=== PATIENT | male | born 1975 | race Hispanic/Latino ===

== ENCOUNTER 2023-10-28 08:02 | Outpatient (CLI) | payer OTHER | END 2023-10-28 08:03 | disposition home or self-care (01) | LOC: BICMRI 08:02 | PROVIDERS: ATTEND Family Medicine | DX: S80.02XD Contusion of left knee, subsequent encounter (principal); M22.42 Chondromalacia patellae, left knee; M89.9 Disorder of bone, unspecified ==

== ENCOUNTER 2023-12-17 09:43 | Outpatient (CLI) | payer OTHER ==
[2023-12-17 11:10] LABS: #Basophils Less than 0.03 10x3/uL (0.0-0.2); %Basophils 0.2 % (0.0-1.0); %Eosinophils 3.6 % (0.0-10.0); %Lymphocytes 29.9 % (21.0-51.0); %Monocytes 6.5 % (0.0-10.0); %Neutrophils 58.5 % (42.0-75.0); Hematocrit 42.1 % (42.0-52.0); Hemoglobin 14.3 g/dL (14.0-18.0); Mean Corpuscular Volume 82.5 fL (78.0-98.0); Mean Platelet Volume 8.8 fL (7.4-10.4); Platelet Count 185 10x3/uL (130-400); RBC Distribution Width 13.2 % (11.5-14.5)
[2023-12-17 12:50] LABS: Chloride 105 mmol/L (98-107); Potassium 3.6 mmol/L (3.5-5.1); Sodium 141 mmol/L (136-145)
[2023-12-17 12:51] LABS: Calcium 8.8 mg/dL (7.8-10.44)
[2023-12-17 12:52] LABS: Glucose 112 mg/dL (70-105)
[2023-12-17 12:53] LABS: Anion Gap 14 mmol/L (10-20); Carbon Dioxide 26 mmol/L (22-29)
[2023-12-17 12:55] LABS: Calc. Creatinine Clearance 0 mL/min (70-130); Estimated GFR 98
[2023-12-17 12:56] LABS: BUN (Urea Nitrogen) 22 mg/dL (8.9-20.6)
== END 2023-12-17 09:44 | disposition home or self-care (01) ==
LOC: LABBT 09:43
PROVIDERS: ATTEND Orthopaedic Surgery
DX: Z01.818 Encounter for other preprocedural examination (principal); M22.42 Chondromalacia patellae, left knee
CPT/HCPCS: 80048; 85025; 93005; 93010

== ENCOUNTER 2023-12-20 09:04 | Day surgery (SDC) | payer OTHER ==
[2023-12-17 10:50] VITALS: BMI 39.5
[2023-12-20] MEDS ORDERED: PROPOFOL 20 ML ONE ×3 (11:47→13:22)
[2023-12-20] MEDS ORDERED: Lidocaine 2% PF 5 ML VIAL ONE (11:47)
[2023-12-20] MEDS ORDERED: Bupivacaine PF 0.5% 30 ML VIAL ONE (11:47)
[2023-12-20] MEDS ORDERED: Lidocaine 1% PF 5 ML VIAL ONE (11:55)
[2023-12-20] MEDS ORDERED: fentaNYL 50 mcg/mL 1 mL Vial ONE (11:55)
[2023-12-20] MEDS ORDERED: Bupivacaine HCl 0.5%/Epinephrine 1:200,000/PF 30 ml Vial ONE (12:20)
[2023-12-20] MEDS ORDERED: CEFAZOLIN 2 GM VIAL ONE (12:59)
[2023-12-20] MEDS ORDERED: Sodium Chloride 0.9% 100 ML ONE (12:59)
[2023-12-20] MEDS ORDERED: Dexamethasone 20 MG/5 ML VIAL ONE (13:25)
[2023-12-20] MEDS ORDERED: Ondansetron PF 4 MG/2 ML Vial ONE (13:25)
[2023-12-20] MEDS ORDERED: Morphine 2 MG/ML VIAL ONE ×2 (15:15→15:44)
[2023-12-20] MEDS ORDERED: HYDROcodone/Acetaminophen 5/325 mg Tablet ONE (15:16)
== END 2023-12-20 17:13 | disposition home or self-care (01) ==
LOC: SDC 09:04
PROVIDERS: ATTEND Orthopaedic Surgery
PROC: 0SBD4ZZ Excision of Left Knee Joint, Percutaneous Endoscopic Approach (ICD-10-PCS; principal; 2023-12-20)
PROC: 0SCD4ZZ Extirpation of Matter from Left Knee Joint, Percutaneous Endoscopic Approach (ICD-10-PCS; principal; 2023-12-20)
PROC: 3E0T3BZ Introduction of Anesthetic Agent into Peripheral Nerves and Plexi, Percutaneous Approach (ICD-10-PCS; principal; 2023-12-20)
DX: M22.42 Chondromalacia patellae, left knee (principal); M24.08 Loose body, other site; I10 Essential (primary) hypertension; R73.9 Hyperglycemia, unspecified; E87.5 Hyperkalemia; Z79.899 Other long term (current) drug therapy; Z98.890 Other specified postprocedural states
CPT/HCPCS: J0665; J1100; J2001; J2272; J2405; J2704; J3010